=== PATIENT | female | born 1940 | race Caucasian/White ===

== ENCOUNTER 2023-01-31 13:57 | Emergency (ER) | payer MEDICARE, OTHER ==
[2023-01-31] VITALS (15 sets, daily range): BP systolic 129–184; BP diastolic 57–90
[~2023-01-31] VITALS: Ht 152.4 cm; Wt 58.9 kg
[~2023-01-31 13:57] MED LIST: ZITHROMAX250 MG PO
[2023-01-31] MEDS ORDERED: LATANOPROST0.005 % OU (14:26)
[2023-01-31] MEDS ORDERED: ATENOLOL25 MG PO (14:26)
[2023-01-31] MEDS ORDERED: LOSARTAN POTASS25 MG PO (14:28)
[2023-01-31 16:37] LABS: ALBUMIN 4.1 g/dL (3.2-5.0); ALKALINE PHOSPHATASE 99 u/l (38-126); ANION GAP 12 (6-22 (CALC)); BUN 19 mg/dL (8-23); BUN/CREATININE RATIO 25 (12-20 (CALC)); CARBON DIOXIDE 27 mmol/l (22-30); CHLORIDE 105 mmol/l (95-108); CREATININE 0.8 mg/dL (0.5-1.0); GFR FOR AFR.AMER. > 60 ML/MIN (>=60 (CALC)); GFR OTHER RACES > 60 ML/MIN (>=60 (CALC)); POTASSIUM 4.1 mmol/l (3.5-5.1); SGOT/AST 43 u/l (9-36); SODIUM 139 mmol/l (137-146)
[2023-01-31 16:43] LABS: BILIRUBIN, TOTAL 0.4 mg/dL (0.02-1.3)
[2023-01-31] MEDS ORDERED: HYDRALAZINE HYD25 MG PO (17:06)
== END 2023-01-31 17:56 | disposition home or self-care (01) ==
LOC: ED 13:57
PROVIDERS: Family Medicine
DX: R00.1 Bradycardia, unspecified (principal); I48.91 Unspecified atrial fibrillation; I10 Essential (primary) hypertension; E78.00 Pure hypercholesterolemia, unspecified; I25.2 Old myocardial infarction